=== PATIENT | male | born 1945 | race Caucasian/White ===

== ENCOUNTER 2016-08-07 08:07 | Emergency (ER) | payer MEDICARE ==
[2016-08-07 08:16] VITALS: BP 134/69; PULSE 74; O2SAT 97
[2016-08-07] MEDS ORDERED: BACIGUENT PACKET TP ONE (08:20)
[2016-08-07] MEDS ORDERED: Marcaine 0.5% SDV 10 ML IJ ONE (08:20)
[2016-08-07] MEDS ORDERED: Marcaine 0.5% SDV 10 ML ONE (08:22)
[2016-08-07] MEDS ORDERED: BACIGUENT PACKET ONE (08:23)
[2016-08-07] MEDS ORDERED: Adacel Vial IM ONE ×2 (08:25→08:31)
--- NOTE | 2016-08-07 08:29 | ERPHSYRPT ---
- History of Present Illness Time Seen by Provider: 08/07/16 08:15 Source: patient Patient Subjective Stated Complaint: laceration to left arm while taking tv apart color tub busted and cut his arm open Triage Nursing Assessment: pt alert and orietned x3,m gait is steady, 5 cm laceration to left arm, radial pulse present , cap refill immediate, sensations intact. Physician History: CC: cut left arm Hx: 71 y/o patient of Dr York was volunteering at [facility]. A glass TV screen broke and the broken glass cut the left forearm. No other injuries. Unsure last tetanus vaccine. No N/T/W. 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 He takes ASA. Occurred: just prior to arrival Severity of Pain-Max: mild Severity of Pain-Current: mild Extremities Pain Location: forearm: left Allergies/Adverse Reactions: No Known Drug Allergies Allergy (Unverified 07/22/12 08:27) Home Medications: Primidone 50 MG [Mysoline 50Mg] 50 mg PO QPM 07/22/12 [History] Hx Tetanus, Diphtheria Vaccination/Date Given: (unsure) Hx Influenza Vaccination/Date Given: Yes Hx Pneumococcal Vaccination/Date Given: Yes Immunizations Up to Date: Yes - Review of Systems Constitutional: No Symptoms Skin: Skin Lesions (cut to the left forearm) Neurological: No Focal Weakness, No Parasthesia - Past Medical History Pertinent Past Medical History: No Neurological History: No Pertinent History ENT History: No Pertinent History Cardiac History: No Pertinent History Respiratory History: No Pertinent History Endocrine Medical History: No Pertinent History Musculoskeletal History: No Pertinent History GI Medical History: No Pertinent History History: No Pertinent History Psycho-Social History: No Pertinent History Male Reproductive Disorders: No Pertinent History - Past Surgical History Past Surgical History: No - Social History Smoking Status: Never smoker Exposure to second hand smoke: No Drug Use: none Patient Lives Alone: No - Nursing Vital Signs Nursing Vital Signs: Initial Vital Signs Temperature 98 F Temperature Source Oral Pulse Rate 74 Respiratory Rate 20 Blood Pressure [Right Arm] 134/69 Pain Intensity 2 - Physical Exam General Appearance: alert Eyes, Ears, Nose, Throat Exam: moist mucous membranes Neck Exam: supple Cardiovascular/Respiratory Exam: regular rate/rhythm Wrist Exam: normal inspection, non-tender, no evidence of injury, normal ROM Hand Exam: normal inspection, non-tender, no evidence of injury, normal ROM Neuro/Tendon Exam: normal sensation, normal motor functions Mental Status Exam: alert, oriented x 3, cooperative Skin Exam: warm, dry SpO2 Interpretation: normal SpO2: 97 Oxygen Delivery: Room Air Comments: 5 cm superficial laceration thru the skin of the left forearm. No FB noted. Distal ROM, sensation intact. Procedures - Laceration/Wound Repair left forearm Wound Location: Left, lower arm Wound Length (cm): 5 Wound's Depth, Shape: linear Wound Explored: no foreign body noted Irrigated: Yes Hibiclens Prep: Yes Anesthesia: local, marcaine 0.5 Volume Anesthetic (ccs): 5 Wound Repaired With: sutures Suture Size/Type: 4-0, nylon Number of Sutures: 8 Layer Closure?: No Sterile Dressing Applied?: Yes Progress: 08/07/16 09:02 combination of simple and horizontal mattress sutures - Course Nursing assessment & vital signs reviewed: Yes - Radiology Exams left forearm X-ray Interpretation: Reviewed by me, Negative (no FB) Ordered Tests: Active Orders 24 hr Category Date Time Status Prepare for Sutures STAT Care 08/07/16 08:20 Active Sutures STAT Care 08/07/16 08:20 Active Wound Care STAT Care 08/07/16 08:20 Active FOREARM Stat Exams 08/07/16 08:20 Taken Medication Summary Discontinued Medications Generic Name Dose Route Start Last Admin Trade Name Giovani PRN Reason Stop Dose Admin Bacitracin 0.9 gm 08/07/16 08:20 08/07/16 08:23 Baciguent Packet TP 08/07/16 08:21 0.9 gm STAT ONE Administration Bacitracin Confirm 08/07/16 08:23 Baciguent Packet Administered 08/07/16 08:24 Dose 1 gm .ROUTE .STK-MED ONE Bupivacaine HCl 5 ml 08/07/16 08:20 08/07/16 08:23 Marcaine 0.5% Sdv 10 Ml IJ 08/07/16 08:21 5 ml STAT ONE Administration Bupivacaine HCl Confirm 08/07/16 08:22 Marcaine 0.5% Sdv 10 Ml Administered 08/07/16 08:23 Dose 10 ml .ROUTE .STK-MED ONE Diphtheria/Tetanus/Acell Pertussis 0.5 ml 08/07/16 08:25 08/07/16 08:29 Adacel Vial IM 08/07/16 08:26 0.5 ml .ONCE ONE Administration Diphtheria/Tetanus/Acell Pertussis Confirm 08/07/16 08:31 Adacel Vial Administered 08/07/16 08:32 Dose 0.5 ml IM .STK-MED ONE - Departure Time of Disposition: 09:03 Departure Disposition: Home Clinical Impression: Laceration of left forearm Qualifiers: Encounter type: initial encounter Qualified Code(s): S51.812A - Laceration without foreign body of left forearm, initial encounter Condition: Stable Critical Care Time: No Referrals: BHAVANA YORK [Primary Care Provider] - Instructions: Care for a Laceration After Repair Additional Instructions: LACERATION CARE 1. Do not use peroxide, merthiolate, alcohol, or betadine. 2. Keep wound clean and dry. 3. Change dressing if it becomes wet or soiled. 4. If you must work, wear protective covering. 5. You may return to the emergency department or see your family physician for suture removal. 6. See your family physician or return to the emergency department for any of the following signs or symptoms: A. Redness B. Swelling C. Discolored drainage D. Red streaks E. Elevated temperature F. Other signs of infection Suture removal in 10 days.
--- NOTE | 2016-08-07 09:14 | XRAY ---
Indication: Laceration. Comparison: None 2 views of the left forearm demonstrates anterior laceration and tiny olecranon process spurring. No other bony, articular, or soft tissue abnormalities.
== END 2016-08-07 09:14 | disposition home or self-care (01) ==
LOC: ED 08:07
PROC: 0HQEXZZ Repair Left Lower Arm Skin, External Approach (ICD-10-PCS; principal; 2016-08-07)
DX: S51.812A Laceration without foreign body of left forearm, initial encounter (principal); W45.8XXA Other foreign body or object entering through skin, initial encounter; Y92.098 Other place in other non-institutional residence as the place of occurrence of the external cause; Y99.2 Volunteer activity
CPT/HCPCS: 12002; 73090; 90471; 90715; 99283; 99284; A9270-GY

== ENCOUNTER 2017-07-13 05:49 | Day surgery (SDC) | payer MEDICARE ==
[2017-07-13] MEDS ORDERED: DIPRIVAN 200 MG/20 ML IV ONE (05:50)
[2017-07-13] MEDS ORDERED: Lactated Ringers 1,000 ML IV SCH (06:30)
--- NOTE | 2017-07-13 07:55 | OP ---
SURGERY DATE/TIME: 07/13/2017 0725 PREOPERATIVE DIAGNOSIS: Screening exam. POSTOPERATIVE DIAGNOSIS: Normal colon. PROCEDURE: Colonoscopy. SURGEON: Dr. York. ANESTHESIA: MAC. Medications given by anesthesia department. HISTORY: The patient is a 72 year-old white male presenting now for screening colonoscopy. He was appraised of the risks of the procedure including the risk of perforation, phlebitis, untoward reaction to medication, bleeding and missed lesions. The patient verbalized his understanding and desired to have the procedure performed. DESCRIPTION OF PROCEDURE: The patient was given the medications by the anesthesia department. He had continuous pulse oximetry, ECG monitoring, intermittent blood pressure monitoring and tidal CO2 monitoring during the examination. He was placed in the left lateral decubitus position. A digital rectal examination was performed and revealed normal anal sphincter tone, no masses, normal prostate and no hemorrhoids. The flexible Olympus pediatric colonoscope was used to intubate the rectum. A view of the colon was developed sequentially to the cecum. Upon insertion and withdrawal, including a retroflex view in the rectum, no mucosal lesions were encountered. The scope was removed from the patient who tolerated the procedure well and was sent back to OP recovery in good condition. The prep was noted to be fair to good.
[2017-07-13 08:51] VITALS: O2SAT 98
[2017-07-13 08:56] VITALS: BP 174/92; PULSE 57
== END 2017-07-13 09:10 | disposition home or self-care (01) ==
LOC: SDC 05:49
PROVIDERS: ATTEND Family Medicine
DX: Z12.11 Encounter for screening for malignant neoplasm of colon (principal)
CPT/HCPCS: 99100; J2704

== ENCOUNTER 2018-06-05 04:53 | Emergency (ER) | payer MEDICARE ==
[2018-06-05 06:19] LABS: BASOPHIL % 0.4 % (0.0-0.4); Basophil (Absolute #) 0.02 (0-0.4); Granulocyte Absolute (ANC) 3.85 (1.4-6.9); Granulocytes % 76.4 % (36.0-66.0); Hematocrit 47.1 % (42-50); Hemoglobin 15.2 gm/dl (12.5-18.0); Lymphocyte (Absolute #) 0.57 (1.0-4.6); Lymphocytes % 11.3 % (24.0-44.0); Mean Cell Volume 93.3 fl (78-100); Mean Corpuscular Hemoglobin 30.1 pg (26-32); Mean Corpuscular Hgb Concent. 32.3 g/dl (32-36); Mean Platelet Volume 9.9 fl (6-9.5); Monocytes % 9.9 % (0.0-12.0); Platelet Count 168 K/mm3 (150-450); Red Blood Count 5.05 M/mm3 (4.1-5.6); Red Cell Distribution Width 13.6 % (11.5-14.0)
[2018-06-05 06:27] LABS: ALBUMIN 3.8 g/dL (3.5-5.0); ALKALINE PHOSPHATASE 56 U/L (38-126); ANION GAP 13.9 MEQ/L (5-15); BLOOD UREA NITROGEN 23 mg/dL (9-20); CHLORIDE 101 mmol/L (98-107); Carbon Dioxide 27 mmol/L (22-30); Creatinine 1 1.04 mg/dL (0.66-1.25); Glucose 104 mg/dL (74-106); Potassium 4.3 mmol/L (3.5-5.1); SGOT/AST 26 U/L (17-59); SGPT/ALT 27 U/L (0-50); SODIUM 138 mmol/L (137-145)
--- NOTE | 2018-06-05 06:55 | ERPHSYRPT ---
- History of Present Illness Source: patient, family Exam Limitations: no limitations Patient Subjective Stated Complaint: Pt states he has had a few episodes of unsteadiness which intensified this morning. Denies passing out or falling Triage Nursing Assessment: Pt alert & oriented. Brought to room in wheelchair. Assisted to bed. Respirations easy and unlabored. Skin pink, warm & dry Timing/Duration: day(s) (2), worse Severity: mild Character of Deficits: other (unsteady gate) Deficits: decrease ability to walk Baseline/Normal Cognition: alert oriented x 3 Current Cognition: alert oriented x 3 Baseline Gait: walks w/o assistance Associated Symptoms: trouble walking Hx Tetanus, Diphtheria Vaccination/Date Given: (unsure) Hx Influenza Vaccination/Date Given: Yes (2018) Hx Pneumococcal Vaccination/Date Given: Yes <SANCHO SCOTT - Last Filed: 06/05/18 07:03> <RANDAL CHIANG - Last Filed: 06/05/18 09:10> - History of Present Illness Time Seen by Provider: 06/05/18 05:40 Physician History: 72 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 he has been dizzy and unsteady on his gate last couple of days. worse last night and this am. pt just happens to have an appt with his neurologist today. pt denies headache, denies cp, denies soa, denies abd pain. no new meds or dosing. denies n/v/d. (SANCHO SCOTT) Allergies/Adverse Reactions: No Known Drug Allergies Allergy (Verified 07/02/17 16:08) Home Medications: Aspirin EC 81 mg [Ecotrin 81 mg] 81 mg PO DAILY 07/13/17 [History] Multivitamin [Multivitamins] 1 each PO DAILY 07/13/17 [History] Primidone 50 MG [Mysoline 50Mg] 50 mg PO UD 07/13/17 [History] Propranolol HCl [Inderal Xl] 80 mg PO TID 07/13/17 [History] Glucosamine Sulfate Dipot Chlr [Glucosamine] 1,500 mg PO DAILY 06/05/18 [History ] - Review of Systems Constitutional: No Symptoms Eyes: No Symptoms Ears, Nose, & Throat: No Symptoms Respiratory: No Symptoms Cardiac: No Symptoms Abdominal/Gastrointestinal: No Symptoms Genitourinary Symptoms: No Symptoms Musculoskeletal: No Symptoms Skin: No Symptoms Neurological: Gait Changes Psychological: No Symptoms Endocrine: No Symptoms Hematologic/Lymphatic: No Symptoms Immunological/Allergic: No Symptoms All Other Systems: Reviewed and Negative <SANCHO SCOTT - Last Filed: 06/05/18 07:03> - Past Medical History Pertinent Past Medical History: No Neurological History: Other ENT History: No Pertinent History Cardiac History: No Pertinent History Respiratory History: No Pertinent History Endocrine Medical History: No Pertinent History Musculoskeletal History: No Pertinent History GI Medical History: No Pertinent History History: No Pertinent History Psycho-Social History: No Pertinent History Male Reproductive Disorders: No Pertinent History Other Medical History: familial tremors - Past Surgical History Past Surgical History: No Neuro Surgical History: No Pertinent History Cardiac: No Pertinent History Respiratory: No Pertinent History Gastrointestinal: No Pertinent History Genitourinary: No Pertinent History Musculoskeletal: No Pertinent History Male Surgical History: No Pertinent History - Social History Smoking Status: Never smoker Exposure to second hand smoke: No Drug Use: none Patient Lives Alone: No <SANCHO SCOTT - Last Filed: 06/05/18 07:03> - Veronique Coma Scale Best Eye Response ([place]): (4) open spontaneously Best Verbal Response (Veronique): (5) oriented Best Motor Response (Veronique): (6) obeys commands [place] Total: 15 - Physical Exam General Appearance: no apparent distress, alert, anxiety Eye Exam: bilateral eye: normal inspection, PERRL, EOMI Ears, Nose, Throat Exam: normal ENT inspection, moist mucous membranes Neck Exam: normal inspection, non-tender, supple, full range of motion Respiratory: normal breath sounds, lungs clear, airway intact, No chest tenderness, No respiratory distress, No accessory muscle use, No rhonchi, No wheezing, No stridor Cardiovascular: regular rate/rhythm, normal heart sounds, normal peripheral pulses Gastrointestinal: soft, normal bowel sounds, No tenderness, No guarding Rectal Exam: not done Back Exam: normal inspection, normal range of motion, No CVA tenderness, No vertebral tenderness Extremity Exam: normal inspection, normal range of motion, pelvis stable Mental Status: alert, oriented x 3, cooperative steward/stewardess dining room Exam: normal hearing, normal speech, tongue midline Coordination/Gait: normal finger to nose, normal gait (pt states back at baseline now) Motor/Sensory: no motor deficit, no sensory deficit, no pronator drift Skin Exam: normal color, warm, dry SpO2 Interpretation: normal SpO2: 96 O2 Delivery: Room Air <SANCHO SCOTT - Last Filed: 06/05/18 07:03> - Nursing Vital Signs Nursing Vital Signs: Initial Vital Signs Temperature 98.4 F 06/05/18 05:11 Pulse Rate 58 L 06/05/18 05:11 Respiratory Rate 18 06/05/18 05:11 Blood Pressure 168/94 06/05/18 05:11 O2 Sat by Pulse Oximetry 97 06/05/18 05:11 Pain Scale Pain Intensity 0 - Course Nursing assessment & vital signs reviewed: Yes <SANCHO SCOTT - Last Filed: 06/05/18 07:03> Ordered Tests: Active Orders 24 hr Category Date Time Status Clean Catch Urine Specimen STAT Care 06/05/18 05:53 Active IV Insertion STAT Care 06/05/18 05:53 Active HEAD WITHOUT CONTRAST [CT] Stat Exams 06/05/18 05:53 Taken CBC W DIFF Stat Lab 06/05/18 05:55 Completed CMP Stat Lab 06/05/18 05:55 Completed UA W/RFX UR CULTURE Stat Lab 06/05/18 07:50 Completed Lab/Rad Data: Laboratory Result Diagrams 06/05/18 05:55 06/05/18 05:55 Laboratory Results 06/05/18 06/05/18 06/05/18 Range/Units 07:50 05:55 05:55 WBC 5.0 (4.0-10.5) K/mm3 RBC 5.05 (4.1-5.6) M/mm3 Hgb 15.2 (12.5-18.0) gm/dl Hct 47.1 (42-50) % MCV 93.3 (78-100) fl MCH 30.1 (26-32) pg MCHC 32.3 (32-36) g/dl RDW 13.6 (11.5-14.0) % Plt Count 168 (150-450) K/mm3 MPV 9.9 H (6-9.5) fl Gran % 76.4 H (36.0-66.0) % Eos # (Auto) 0.10 (0-0.5) Absolute Lymphs (auto) 0.57 L (1.0-4.6) Absolute Monos (auto) 0.50 (0.0-1.3) Lymphocytes % 11.3 L (24.0-44.0) % Monocytes % 9.9 (0.0-12.0) % Eosinophils % 2.0 (0.00-5.0) % Basophils % 0.4 (0.0-0.4) % Absolute Granulocytes 3.85 (1.4-6.9) Basophils # 0.02 (0-0.4) Sodium 138 (137-145) mmol/L Potassium 4.3 (3.5-5.1) mmol/L Chloride 101 (98-107) mmol/L Carbon Dioxide 27 (22-30) mmol/L Anion Gap 13.9 (5-15) MEQ/L BUN 23 H (9-20) mg/dL Creatinine 1.04 (0.66-1.25) mg/dL Estimated GFR > 60.0 ML/MIN Glucose 104 (74-106) mg/dL Calcium 9.0 (8.4-10.2) mg/dL Total Bilirubin 0.50 (0.2-1.3) mg/dL AST 26 (17-59) U/L ALT 27 (0-50) U/L Alkaline Phosphatase 56 (38-126) U/L Serum Total Protein 7.0 (6.3-8.2) g/dL Albumin 3.8 (3.5-5.0) g/dL Urine Color YELLOW (YELLOW) Urine Appearance CLEAR (CLEAR) Urine pH 7.0 (5-6) Ur Specific [place] 1.025 (1.005-1.025) Urine Protein NEGATIVE (Negative) Urine Ketones NEGATIVE (NEGATIVE) Urine Blood NEGATIVE (0-5) Khang/ul Urine Nitrite NEGATIVE (NEGATIVE) Urine Bilirubin NEGATIVE (NEGATIVE) Urine Urobilinogen NEGATIVE (0-1) mg/dL Ur Leukocyte Esterase NEGATIVE (NEGATIVE) Urine WBC (Auto) NONE (0-5) /HPF Urine RBC (Auto) NONE (0-2) /HPF U Epithel Cells (Auto) NONE (FEW) /HPF Urine Bacteria (Auto) NONE (NEGATIVE) /HPF Urine Mucus (Auto) SLIGHT (NEGATIVE) /HPF Urine Culture Reflexed NO (NO) Urine Glucose NEGATIVE (NEGATIVE) mg/dL <SANCHO SCOTT Filed: 06/05/18 07:03> - Progress Progress: unchanged Counseled pt/family regarding: lab results, diagnosis, need for follow-up, rad results <RANDAL CHIANG - Last Filed: 06/05/18 09:10> - Progress Progress Note: 06/05/18 07:03 transfer of care to dr. chiang at shift change. (SANCHO SCOTT) 06/05/18 09:06 CONSULTED WITH PATIENT'S NEUROLOGIST AT 0[address] DR CAMACHO RECOMMENDS OBTAINING A MYSOLINE AND PHENOBARBITAL LEVELS WHICH ARE SENT OUT FOR LAB. PATIENT HAS NEUROLOGY APPOINTMENT THIS AFTERNOON (RANDAL CHIANG) <SANCHO SCOTT - Last Filed: 06/05/18 07:03> - Departure Departure Disposition: Home Critical Care Time: No <RANDAL CHIANG - Last Filed: 06/05/18 09:10> - Departure Clinical Impression: ACUTE VERTIGO Condition: Stable Referrals: BHAVANA MCNKIGHT [Primary Care Provider] - Additional Instructions: CONTINUE ALL CURRENT MEDICATIONS AND FOLLOWUP WITH NEUROLOGIST THIS AFTERNOON SCHEDULED. AMBULATE USING WALKER ASSISTANCE. AVOID DRIVING MOTOR VEHICLES UNTIL CLEARED BY NEUROLOGIST.
[2018-06-05 07:04] VITALS: PULSE 56
[2018-06-05 08:06] LABS: Appearance CLEAR (CLEAR); Bilirubin NEGATIVE (NEGATIVE); Blood NEGATIVE Ery/ul (0-5); Glucose NEGATIVE (NEGATIVE); Ketones NEGATIVE (NEGATIVE); Leukocyte Esterase NEGATIVE (NEGATIVE); Mucus SLIGHT /HPF (NEGATIVE); Nitrite NEGATIVE (NEGATIVE); Protein,Urine Dip NEGATIVE (Negative); Specific Gravity 1.025 (1.005-1.025); Urobilinogen NEGATIVE mg/dL (0-1)
--- NOTE | 2018-06-05 09:12 | XRAY ---
Indication: Dizziness and unsteadiness. Blurred vision. Multiple contiguous axial images obtained through the head without contrast. Comparison: July 22, 2012. Stable age-appropriate global atrophy and minimal periventricular degenerative micro-ischemia. No acute intracranial hemorrhage, abnormal extra-axial fluid collection, or mass effect. Fourth ventricle is midline without hydrocephalus. Bony calvarium intact. Incompletely visualized 2.1 cm right maxillary sinus and 8mm left maxillary sinus polyp/retention cyst. Remaining visualized paranasal sinuses and mastoid air cells are clear. Impression: Nonacute senile brain. Incidental paranasal sinus polyp/retention cyst. CT DI 66.12
[2018-06-05 09:48] VITALS: BP 168/85; O2SAT 97
[2018-06-05 10:01] LABS: Slide Review 1 YES
== END 2018-06-05 09:49 | disposition home or self-care (01) ==
LOC: ED 04:53
DX: R42 Dizziness and giddiness (principal); G25.2 Other specified forms of tremor; Z79.899 Other long term (current) drug therapy
CPT/HCPCS: 36000; 36415; 70450; 80053; 80184; 81001; 85025; 99284

== ENCOUNTER 2024-01-01 06:27 | Day surgery (SDC) | payer MEDICARE ==
[~2024-01-01 06:27] MED LIST: Sodium Chloride 0.9% 10 ML FLUSH Syringe IJ ONE
[2024-01-01] MEDS: TETRACAINE 0.5% STERI-UNIT SOL OP ONE ×2 (07:32→07:58)
[2024-01-01] MEDS: Ak-Dilate OPHTHALMIC*** 1.065 ML, Cyclogyl 1% OPHTH SOL 1.065 ML, GATIFLOXACIN 0.5% OPH... OP ONE (07:37)
[2024-01-01] MEDS ORDERED: BETADINE 5% OPHTHALMIC 30 ML OP ONE (08:00)
[2024-01-01] MEDS ORDERED: Zofran 4 MG/2 ML VIAL IV PRN (08:30)
[2024-01-01] MEDS ORDERED: VIGAMOX/BSS 0.15% SYR IO ONE (08:30)
[2024-01-01] MEDS ORDERED: TRIAMCINOLONE 15 MG/ML INJ INTRAOP ONE (08:30)
[2024-01-01] MEDS ORDERED: Epinephrine Preservative Free 1 MG/ML IJ ONE (08:30)
[2024-01-01] MEDS ORDERED: DIPRIVAN 200 MG/20 ML IV ONE (09:05)
[2024-01-01 09:28] VITALS: RESP 20; TEMP 96.1
[2024-01-01 09:40] VITALS: O2SAT 93
[2024-01-01] MEDS: ACETAZOLAMIDE 250 MG TABLET PO ONE (09:42)
[2024-01-01 09:45] VITALS: BP 111/72; PULSE 61
== END 2024-01-01 09:57 | disposition home or self-care (01) ==
LOC: SDC 06:27
PROVIDERS: ATTEND Ophthalmology
DX: H25.812 Combined forms of age-related cataract, left eye (principal)
CPT/HCPCS: 99100; C1780; J0171; J2704; A9270-GY

== ENCOUNTER 2024-01-29 11:27 | Day surgery (SDC) | payer MEDICARE ==
[2024-01-29] MEDS ORDERED: BETADINE 5% OPHTHALMIC 30 ML OP ONE (11:30)
[2024-01-29] MEDS ORDERED: Sodium Chloride 0.9% 10 ML FLUSH Syringe IJ ONE (11:30)
[2024-01-29] MEDS ORDERED: VIGAMOX/BSS 0.15% SYR IO ONE (11:30)
[2024-01-29] MEDS ORDERED: TRIAMCINOLONE 15 MG/ML INJ INTRAOP ONE (11:30)
[2024-01-29] MEDS: TETRACAINE 0.5% STERI-UNIT SOL OP ONE ×2 (11:55→12:21)
[2024-01-29] MEDS: Ak-Dilate OPHTHALMIC*** 1.065 ML, Cyclogyl 1% OPHTH SOL 1.065 ML, GATIFLOXACIN 0.5% OPH... OP ONE (11:58)
[2024-01-29] MEDS ORDERED: DIPRIVAN 200 MG/20 ML IV ONE (13:03)
[2024-01-29] MEDS ORDERED: Zofran 4 MG/2 ML VIAL IV PRN (13:30)
[2024-01-29] MEDS ORDERED: Epinephrine Preservative Free 1 MG/ML IJ ONE (13:30)
[2024-01-29 13:31] VITALS: RESP 16
[2024-01-29] MEDS: ACETAZOLAMIDE 250 MG TABLET PO ONE (13:33)
[2024-01-29 13:36] VITALS: TEMP 96.8
[2024-01-29 13:42] VITALS: BP 116/75; PULSE 62; O2SAT 96
== END 2024-01-29 13:56 | disposition home or self-care (01) ==
LOC: SDC 11:27
PROVIDERS: ATTEND Ophthalmology
DX: H25.811 Combined forms of age-related cataract, right eye (principal)
CPT/HCPCS: C1780; J0171; J2704; A9270-GY